=== PATIENT | male | born 1975 | race Caucasian/White ===

== ENCOUNTER 2016-10-22 13:09 | Inpatient (IN) | payer OTHER ==
[~2016-10-22] VITALS: Ht 185.4 cm; Wt 136.6 kg
[~2016-10-22 13:09] MED LIST: ADVAIR 250/501 DISK IH; BENTYL20 MG PO; LOSARTAN POTAS100 MG PO; SIMVASTATIN10 MG PO; SINGULAIR10 MG PO; TRAMADOL HCL50 MG PO
[2016-10-22 14:50] LABS: HEMATOCRIT 36.2 % (38.0-50.0); MCH 30.6 PG (29.0-34.0); MCHC 34.5 G/DL (30.0-36.0); MCV 88.7 FL (86-99); MEAN PLAT.VOLUME 9.3 uM^3 (9.0-12.4); RBC DIS.WIDTH-CV 12.9 % (11.8-14.6); RBC DIS.WIDTH-SD 40.6 % (39-53); RED BLOOD COUNT 4.08 M/uL (4.00-5.50)
[2016-10-22 14:53] LABS: PLATELET COUNT 260 K/uL (156-360); WHITE BLOOD COUNT 8.1 K/uL (4.1-10.2)
[2016-10-22 15:00] LABS: CHLORIDE 103 mEq/L (99-109); POTASSIUM 4.8 mEq/L (3.7-5.4); SODIUM 138 mEq/L (136-147)
[2016-10-22 15:01] LABS: GLUCOSE 118 mg/dL (70-99)
[2016-10-22 15:03] LABS: ANION GAP 10 MEQ/L (2-14)
[2016-10-22 15:05] LABS: GFR ESTIMATE (CALCULATED) > 59 mL/min/
[2016-10-22 15:06] LABS: UREA NITROGEN (BUN) 18 mg/dL (9-23)
[2016-10-22 16:19] LABS: INTER. NORMALIZED RATIO 1.1; PROTHROMBIN TIME 11.5 (9.2-11.2); PTT 29.5 (25-32)
[2016-10-22] MEDS ORDERED: ADVAIR 500/501 DISK IH (17:11)
[2016-10-22] MEDS ORDERED: ADVIL,NUPRIN,M200 MG PO (17:15)
[2016-10-22] MEDS ORDERED: HYDROCODON-ACE1 EAC7 PO (17:17)
[2016-10-22] MEDS ORDERED: XARELTO15 MG PO (17:18)
[2016-10-22] MEDS ORDERED: FLONASE16 G1 BOTH NARES (17:18)
[2016-10-22] MEDS ORDERED: PROAIR HFA8.5 GM IH (17:19)
[2016-10-22] MEDS ORDERED: LYRICA75 MG PO (17:19)
[2016-10-22] MEDS ORDERED: SALINE NOSE SPR45 M1 BOTH NARES (17:21)
[2016-10-22] MEDS ORDERED: GUMMI BEAR MUL1 EACH PO (17:22)
[2016-10-22 20:36] VITALS: BP 126/72
[2016-10-22 23:44] VITALS: BP 131/73
[2016-10-23 03:35] VITALS: BP 119/66
[2016-10-23 07:18] LABS: HEMATOCRIT 35.1 % (38.0-50.0); MCH 30.3 PG (29.0-34.0); MCHC 33.9 G/DL (30.0-36.0); MCV 89.3 FL (86-99); MEAN PLAT.VOLUME 9.4 uM^3 (9.0-12.4); PLATELET COUNT 243 K/uL (156-360); RBC DIS.WIDTH-CV 13.4 % (11.8-14.6); RBC DIS.WIDTH-SD 43.5 % (39-53); RED BLOOD COUNT 3.93 M/uL (4.00-5.50); WHITE BLOOD COUNT 7.4 K/uL (4.1-10.2)
[2016-10-23 07:36] LABS: INTER. NORMALIZED RATIO 1.1; PROTHROMBIN TIME 10.8 (9.2-11.2); PTT 38.5 (25-32)
[2016-10-23 08:00] VITALS: BP 117/66
[2016-10-23 08:50] LABS: ALKALINE PHOSPHATASE 40 IU/L (3-129); ANION GAP 9 MEQ/L (2-14); CHLORIDE 103 MEQ/L (99-109); GFR ESTIMATE (CALCULATED) > 59 mL/min/; GLUCOSE 101 mg/dL (70-99); POTASSIUM 4.4 MEQ/L (3.7-5.4); SAMPLE HEMOLYSIS CHECK 0; SAMPLE ICTERIC CHECK 0; SAMPLE LIPEMIA CHECK 0; SODIUM 139 MEQ/L (136-147); TOTAL BILIRUBIN 0.5 MG/DL (0.0-1.0); UREA NITROGEN (BUN) 17 mg/dL (9-23)
[2016-10-23 12:00] VITALS: BP 115/59
[2016-10-23 16:08] VITALS: BP 116/66
[2016-10-23 19:34] VITALS: BP 144/81
[2016-10-23 23:43] VITALS: BP 138/63
[2016-10-24 04:01] VITALS: BP 125/68
[2016-10-24 04:32] LABS: HEMATOCRIT 34.7 % (38.0-50.0); MCH 30.3 PG (29.0-34.0); MEAN PLAT.VOLUME 9.2 uM^3 (9.0-12.4); PLATELET COUNT 279 K/uL (156-360); RBC DIS.WIDTH-CV 13.1 % (11.8-14.6); RBC DIS.WIDTH-SD 41.9 % (39-53); WHITE BLOOD COUNT 7.6 K/uL (4.1-10.2)
[2016-10-24 04:39] LABS: CHLORIDE 102 mEq/L (99-109); POTASSIUM 4.3 mEq/L (3.7-5.4); SODIUM 136 mEq/L (136-147)
[2016-10-24 04:40] LABS: PROTHROMBIN TIME 10.4 (9.2-11.2)
[2016-10-24 04:41] LABS: GLUCOSE 150 mg/dL (70-99)
[2016-10-24 04:42] LABS: ANION GAP 9 MEQ/L (2-14)
[2016-10-24 04:43] LABS: TOTAL BILIRUBIN 0.3 mg/dL (0.0-1.0)
[2016-10-24 04:44] LABS: ALKALINE PHOSPHATASE 51 IU/L (3-129)
[2016-10-24 04:45] LABS: GFR ESTIMATE (CALCULATED) > 59 mL/min/
[2016-10-24 04:46] LABS: UREA NITROGEN (BUN) 15 mg/dL (9-23)
[2016-10-24 08:00] VITALS: BP 117/63
[2016-10-24 12:00] VITALS: BP 112/52
[2016-10-24 15:41] VITALS: BP 132/71
[2016-10-24 19:08] VITALS: BP 117/73
[2016-10-24 23:24] VITALS: BP 125/66
[2016-10-25 04:15] VITALS: BP 124/70
[2016-10-25 07:28] LABS: HEMATOCRIT 35.6 % (38.0-50.0); MCH 29.8 PG (29.0-34.0); MCHC 33.4 G/DL (30.0-36.0); PLATELET COUNT 277 K/uL (156-360); RBC DIS.WIDTH-CV 13.2 % (11.8-14.6); RBC DIS.WIDTH-SD 42.6 % (39-53); WHITE BLOOD COUNT 8.1 K/uL (4.1-10.2)
[2016-10-25 07:33] LABS: INTER. NORMALIZED RATIO 1.2; PROTHROMBIN TIME 12.1 (9.2-11.2); PTT 50.6 (25-32)
[2016-10-25 07:58] LABS: ALKALINE PHOSPHATASE 43 IU/L (3-129); ANION GAP 9 MEQ/L (2-14); CHLORIDE 100 MEQ/L (99-109); GFR ESTIMATE (CALCULATED) > 59 mL/min/; POTASSIUM 4.5 MEQ/L (3.7-5.4); SAMPLE HEMOLYSIS CHECK 0; SAMPLE ICTERIC CHECK 0; SAMPLE LIPEMIA CHECK 0; SODIUM 135 MEQ/L (136-147); UREA NITROGEN (BUN) 15 mg/dL (9-23)
[2016-10-25 08:00] VITALS: BP 132/72
[2016-10-25 08:00] LABS: GLUCOSE 104 mg/dL (70-99); TOTAL BILIRUBIN 0.3 MG/DL (0.0-1.0)
[2016-10-25 16:00] VITALS: BP 118/71
[2016-10-25 19:47] VITALS: BP 128/76
[2016-10-25 23:51] VITALS: BP 130/69
[2016-10-26 03:33] VITALS: BP 133/70
[2016-10-26 07:22] VITALS: BP 132/82
[2016-10-26 07:40] LABS: HEMATOCRIT 36.4 % (38.0-50.0); MCH 30.5 PG (29.0-34.0); MCHC 33.8 G/DL (30.0-36.0); MCV 90.3 FL (86-99); MEAN PLAT.VOLUME 9.1 uM^3 (9.0-12.4); PLATELET COUNT 267 K/uL (156-360); RBC DIS.WIDTH-CV 13.5 % (11.8-14.6); RBC DIS.WIDTH-SD 44.6 % (39-53); RED BLOOD COUNT 4.03 M/uL (4.00-5.50); WHITE BLOOD COUNT 8.2 K/uL (4.1-10.2)
[2016-10-26 08:02] LABS: INTER. NORMALIZED RATIO 1.6; PROTHROMBIN TIME 16.6 (9.2-11.2)
[2016-10-26 08:53] LABS: ALKALINE PHOSPHATASE 45 IU/L (3-129); ANION GAP 11 MEQ/L (2-14); CHLORIDE 102 MEQ/L (99-109); GFR ESTIMATE (CALCULATED) > 59 mL/min/; GLUCOSE 107 mg/dL (70-99); POTASSIUM 4.4 MEQ/L (3.7-5.4); SAMPLE HEMOLYSIS CHECK 0; SAMPLE ICTERIC CHECK 0; SAMPLE LIPEMIA CHECK 0; SODIUM 137 MEQ/L (136-147); TOTAL BILIRUBIN 0.3 MG/DL (0.0-1.0); UREA NITROGEN (BUN) 13 mg/dL (9-23)
[2016-10-26 10:00] LABS: PTT 80.4 (25-32)
[2016-10-26 15:30] VITALS: BP 122/60
[2016-10-26 19:32] VITALS: BP 123/71
[2016-10-26] MEDS ORDERED: PANTOPRAZOLE SO40 MG PO (22:49)
[2016-10-26] MEDS ORDERED: COUMADIN7.5 MG PO (22:50)
[2016-10-27 00:42] VITALS: BP 120/60
[2016-10-27 05:00] VITALS: BP 117/68
[2016-10-27 05:13] LABS: HEMATOCRIT 35.1 % (38.0-50.0); MCH 30.6 PG (29.0-34.0); MCHC 33.9 G/DL (30.0-36.0); MCV 90.2 FL (86-99); PLATELET COUNT 270 K/uL (156-360); RBC DIS.WIDTH-CV 13.5 % (11.8-14.6); RBC DIS.WIDTH-SD 43.9 % (39-53); RED BLOOD COUNT 3.89 M/uL (4.00-5.50); WHITE BLOOD COUNT 9.4 K/uL (4.1-10.2)
[2016-10-27 05:31] LABS: PTT 81.5 (25-32)
[2016-10-27 05:37] LABS: ALKALINE PHOSPHATASE 43 IU/L (3-129); ANION GAP 7 MEQ/L (2-14); CHLORIDE 100 MEQ/L (99-109); GFR ESTIMATE (CALCULATED) > 59 mL/min/; GLUCOSE 114 mg/dL (70-99); POTASSIUM 4.1 MEQ/L (3.7-5.4); SAMPLE HEMOLYSIS CHECK 0; SAMPLE ICTERIC CHECK 0; SAMPLE LIPEMIA CHECK 0; SODIUM 134 MEQ/L (136-147); TOTAL BILIRUBIN 0.3 MG/DL (0.0-1.0); UREA NITROGEN (BUN) 13 mg/dL (9-23)
[2016-10-27 08:00] VITALS: BP 115/69
[2016-10-27 08:45] LABS: PROTHROMBIN TIME 20.8 (9.2-11.2)
[2016-10-29 12:52] LABS: POC NON-PRINT COM 1 ND
== END 2016-10-27 13:50 | disposition home health service (06) | DRG 205 ==
LOC: EME 13:09 → EDOF 18:30 → 2EASTP 18:30
PROVIDERS: Internal Medicine
DX: J95.89 Other postprocedural complications and disorders of respiratory system, not elsewhere classified (principal); I26.99 Other pulmonary embolism without acute cor pulmonale; T81.72XA Complication of vein following a procedure, not elsewhere classified, initial encounter; I82.492 Acute embolism and thrombosis of other specified deep vein of left lower extremity; I82.401 Acute embolism and thrombosis of unspecified deep veins of right lower extremity; Y83.8 Other surgical procedures as the cause of abnormal reaction of the patient, or of later complication, without mention of misadventure at the time of the procedure; I10 Essential (primary) hypertension; E78.5 Hyperlipidemia, unspecified; J45.909 Unspecified asthma, uncomplicated; K76.0 Fatty (change of) liver, not elsewhere classified; G47.33 Obstructive sleep apnea (adult) (pediatric)
CPT/HCPCS: 71020; 80048; 80053; 82272; 85027; 85610; 85730; 93005; 93971; 94640; 94640 76; 99281; 99285